=== PATIENT | female | born 1965 | race Caucasian/White ===

== ENCOUNTER 2018-08-17 10:50 | Emergency (ER) | payer OTHER ==
[2018-08-17] MEDS ORDERED: Naproxen 550 mg Tab PO STA (11:11)
[2018-08-17] MEDS ORDERED: Naproxen 550 mg Tab PO ONE (11:16)
--- NOTE | 2018-08-17 11:18 | C.PDOC ---
History Of Present Illness 52 year old female presents to the emergency department c/o left shoulder pain status-post tripping and falling two days ago on the stairs. She notes she did not have pain initialy but a few hours later felt the pain. Pain is worse with movement. Patient states that she has not taken medicine for the pain today. Patient states that she is right-hand dominant. Patient denies head trauma, other injury, chest pain, sob, weakness and numbness. 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 (Jorge Godinez) History/Exam Limitations: no limitations Onset/Duration Of Symptoms: Days (2) Current Symptoms Are (Timing): Still Present Quality: "Pain" Exacerbating Factor(s): Movement Past Medical History Reviewed: Historical Data, Nursing Documentation, Vital Signs Vital Signs: Last Vital Signs Temp 99.5 F 08/17/18 10:59 Pulse 84 08/17/18 10:59 Resp 18 08/17/18 10:59 BP 149/92 H 08/17/18 10:59 Pulse Ox 99 08/17/18 10:59 - Medical History PMH: No Chronic Diseases Surgical History: No Surg Hx Family History: States: No Known Family Hx - Social History Hx Alcohol Use: No Hx Substance Use: No - Immunization History Hx Tetanus Toxoid Vaccination: Yes Hx Influenza Vaccination: No Hx Pneumococcal Vaccination: No Review Of Systems Except As Marked, All Systems Reviewed And Found Negative. Musculoskeletal: Positive for: Shoulder Pain (left shoulder) Neurological: Negative for: Weakness, Numbness Physical Exam - Physical Exam Appears: Well, Non-toxic, Other (uncomfortable) Skin: Normal Color, Warm, Dry Head: Atraumatic, Normacephalic Eye(s): bilateral: Normal Inspection, EOMI Nose: Normal Oral Mucosa: Moist Neck: Normal ROM, Supple Chest: Symmetrical Cardiovascular: Rhythm Regular Respiratory: Normal Breath Sounds, No Accessory Muscle Use Extremity: No Normal ROM (decreased ROM at the left shoulder, secondary to pain), Tenderness (diffuse tenderness at the left shoulder), Capillary Refill (<2 sec), No Swelling Pulses: Left Radial: Normal, Right Radial: Normal Neurological/Psych: Oriented x3, Normal Speech, Normal Motor, Normal Sensation ED Course And Treatment O2 Sat by Pulse Oximetry: 99 (RA) Pulse Ox Interpretation: Normal - Other Rad Left Shoulder XR X-Ray: Interpreted by Me, Viewed By Me, Read By Radiologist Interpretation: Accession No. : [id number]. Patient Name / ID : ORAL NGUYEN / [id number]. Exam Date : 08/17/2018 11:16:03 ( Approved ). Study Comment : Sex / Age : F / 52Y. Creator : Adan Cardenas MD. Dictator : Adan Cardenas MD. Business Banking Officer : Apartment Maintenance Technician : Adan Cardenas MD. Approver2 : Report Date : 08/17/2018 11:36:13. My Comment : . Date of service: 08/17/2018. PROCEDURE: Radiographs of the Left Shoulder. HISTORY: Trauma. COMPARISON: No prior. FINDINGS: BONES: No definitive evidence of acute displaced fracture nor dislocation. Osseous structures intact. There appear to be at least 2 tiny soft tissue calcifications adjacent to the humeral head possibly representing calcific tendinitis. JOINTS: Normal. Glenohumeral and acromioclavicular joints preserved. No osteoarthritis. SOFT TISSUES: Normal. OTHER FINDINGS: None. IMPRESSION: No definitive evidence of acute displaced fracture nor dislocation. Questionable calcific tendinitis. Progress Note: Plan: Naproxen 550mg PO. Shoulder sling applied by medical equipment repair technician. Instructed Fabiola vieira with ortho in 1-2 days. Disposition - Disposition Referrals: Leilani Novoa MD [Staff Provider] - Disposition: HOME/ ROUTINE Disposition Time: 11:36 Condition: STABLE Additional Instructions: Rest and ice the area. Follow up with bone doctor in 1-2 days. Descansa y congela la danilo. Seguimiento con nasim rg en 1-2 garcia. Prescriptions: Naproxen [Naprosyn] 1 tab PO BID PRN #20 tab PRN Reason: Pain Instructions: Shoulder Sprain (DC) Forms: [facility] (Irish) Print Language: SPA - Clinical Impression Clinical Impression: Contusion of left shoulder - PA / HOME APPLIANCE INSTALLER / Resident Statement MD/DO has reviewed & agrees with the documentation as recorded. - Scribe Statement The provider has reviewed the documentation as recorded by the Scribe (Brock Messina) All medical record entries made by the Scribe were at my direction and personally dictated by me. I have reviewed the chart and agree that the record accurately reflects my personal performance of the history, physical exam, medical decision making, and the department course for this patient. I have also personally directed, reviewed, and agree with the discharge instructions and disposition.
--- NOTE | 2018-08-17 11:40 | RAD ---
Date of service: 08/17/2018 PROCEDURE: Radiographs of the Left Shoulder HISTORY: Trauma COMPARISON: No prior. FINDINGS: BONES: No definitive evidence of acute displaced fracture nor dislocation. Osseous structures intact. There appear to be at least 2 tiny soft tissue calcifications adjacent to the humeral head possibly representing calcific tendinitis. JOINTS: Normal. Glenohumeral and acromioclavicular joints preserved. No osteoarthritis. SOFT TISSUES: Normal. OTHER FINDINGS: None. IMPRESSION: No definitive evidence of acute displaced fracture nor dislocation. Questionable calcific tendinitis.
[2018-08-17 12:04] VITALS: BP 144/85; PULSE 71; RESP 19; TEMP 99.1; O2SAT 98
== END 2018-08-17 12:04 | disposition home or self-care (01) ==
LOC: C.ER 10:50
DX: S40.012A Contusion of left shoulder, initial encounter (principal); W01.0XXA Fall on same level from slipping, tripping and stumbling without subsequent striking against object, initial encounter